=== PATIENT | female | born 1950 | race Caucasian/White ===

== ENCOUNTER 2024-11-17 13:20 | Emergency (ER) | payer MEDICARE, MEDICAID ==
[~2024-11-17] VITALS: Ht 149.9 cm; Wt 60.0 kg
[2024-11-17 13:37] VITALS: TEMP 97.5
[2024-11-17 13:58] LABS: PLATELET COUNT (AUTO) 168 K/uL (150-450); RED BLOOD CELL COUNT(AUTO) 5.70 MIL/uL (4.00-5.20); RED CELL DISTRIBUTION WIDTH 15.6 % (11.5-14.5); WHITE BLOOD COUNT (AUTO) 9.9 K/uL (4.5-11.0)
[2024-11-17 14:06] LABS: GLUCOMETER DEV NAME(LOC) ERT.7; GLUCOSE,POINT OF CARE 361 MG/DL (70-110)
[2024-11-17 14:07] LABS: CALCIUM, TOTAL 8.1 mg/dL (8.8-10.5); CREATININE 1.43 mg/dL (0.60-1.30); GLOMERULAR FILTR. RATE CALC 36.0 mL/min (>60); GLUCOSE,RANDOM 371.0 mg/dL (70-110); SODIUM SERUM 134.0 mmol/L (136-145); UREA NITROGEN, BLOOD 41.0 mg/dL (7-18)
[2024-11-17 14:24] LABS: ASPARTATE AMINOTRANSFERASE 27.0 U/L (15-37); TOTAL PROTEIN, SERUM 6.4 g/dL (6.4-8.2)
[2024-11-17 15:00] VITALS: BP 146/81; PULSE 81; RESP 17; O2SAT 99
[2024-11-17] MEDS: POTASSIUM CHLORIDE 20 MEQ ER TABLET PO ONE (15:12)
== END 2024-11-17 17:16 | disposition home or self-care (01) ==
LOC: EMS 13:22
DX: R73.9 Hyperglycemia, unspecified (principal)
CPT/HCPCS: 80048; 80076; 82962; 85025; 99283